=== PATIENT | male | born 1950 | race Caucasian/White ===

== ENCOUNTER 2018-07-25 08:49 | Observation (INO) ==
[2018-07-25 09:25] LABS: Hematocrit 43.6 % (42.0-52.0); Mean Cell Volume 86.3 fl (78-100); Mean Corpuscular Hemoglobin 27.7 pg (27-31); Mean Corpuscular Hgb Conc 32.1 g/dl (32-36); Mean Platelet Volume 9.9 fl (8-11.3); Platelet Count 227 K/mm3 (150-450); Red Blood Count 5.05 M/mm3 (4.7-6.0); Red Cell Distribution Width 13.9 % (11.5-14.0); White Blood Count 26.2 K/mm3 (4.0-10.5)
[2018-07-25 09:34] LABS: Total Cells Counted 100
[2018-07-25] MEDS ORDERED: DIATRIZOATE MEGLUMINE, SODIUM 30 ML BTL PO ONE (09:35)
[2018-07-25] MEDS ORDERED: MORPHINE SULFATE 4 MG/ML SYRG IV ONE (09:35)
[2018-07-25] MEDS ORDERED: NORMAL SALINE 1,000 ML IV ONE (09:35)
[2018-07-25 09:38] LABS: Albumin * 3.6 gm/dl (3.4-5.0); BUN/Creatinine Ratio 7.8 (9.0-21.6); Bilirubin, Total 1.2 mg/dL (0.0-1.1); Ca. Corrected For Albumin 8.9 mg/dL (8.4-10.2); Calcium * 8.9 mg/dL (7.9-10.9); Total Protein 7.1 gm/dL (6.2-8.2)
[2018-07-25 09:58] LABS: Lymphocyte 14 % (20-51); Monocyte 8 % (0-9); Neutrophil 78 % (42-75); Neutrophil # 20.4 K/mm3 (1.3-6.0); Platelet Estimate Normal (NORMAL); RBC Morphology Normal (NORMAL)
--- NOTE | 2018-07-25 10:03 | ERNOTE ---
Abdominal HPI - Narrative Date of Service: 07/25/18 - General Chief Complaint: Abdominal Pain Time Seen by Provider: 07/25/18 09:07 Source: patient Exam Limitations: no limitations - Immun/Allergies/Home Medications Immunizatons: IMMUNIZATION HX Immunizations Up to Date Yes Allergies/Adverse Reactions: Allergies No Known Allergies Allergy (Verified 07/25/18 08:57) Home Medications: HOME MEDICATIONS Aspirin [Aspirin EC] 81 mg PO DAILY 07/25/18 [Last Taken Unknown] Atorvastatin Calcium [Lipitor] 80 mg PO DAILY 07/25/18 [Last Taken Unknown] Calcium Polycarbophil [Fiber Laxative] 1,250 mg PO HS 07/25/18 [Last Taken Unknown] Docusate Sodium [Colace] 200 mg PO DAILY 07/25/18 [Last Taken Unknown] Tamsulosin HCl [Flomax] 0.4 mg PO DAILY 07/25/18 [Last Taken Unknown] - History of Present Illness Narrative: Patient presents to the ED for abdominal pain. This began last night and has not gone away. 10 right now. He had a bout of this 3 weeks ago that went away after a bowel movement. Pain can be severe at times. Mostly right sided but sometimes generalizes. Has felt feverish but no recorded temp. No vomiting. No CP or SOB. no trouble with urination. Has not seen anyone else for this. Constant pain since around 6pm last night. Timing: constant, other - fluctuating intensity Quality: moderate Activities at Onset: none Modifying Factors - (Improves): Present: other - nothign relieved this bout Modifying Factors - (Worsens): Present: other - nothing Associated Symptoms: Absent: headache, chest pain, diarrhea-gross blood, diarrhea-mucous, shortness of breath, swelling/mass in abdomen Prior Abdominal Problems: Present: similar symptoms Prior Treatment: Absent: recently seen, currently on antibiotics Review of Systems - Review of Systems Constitutional: Absent: fever EYE: Present: no symptoms reported ENT: Absent: sore throat Respiratory: Absent: shortness of breath Cardiology: Absent: chest pain Gastrointestinal/Abdominal: Present: See HPI Genitourinary: Absent: dysuria Neurological: Absent: weakness All Other Systems: All systems neg except as marked Medical History (Updated 07/25/18 @ 08:59 by Merced Patel RN) BPH (benign prostatic hyperplasia) Hyperlipidemia Surgical History: Surgical History (Updated 07/25/18 @ 08:58 by Merced Patel RN) History of coronary artery bypass graft x 3 Family History: Family History (Last Reviewed 07/25/18 @ 10:02 by Joby Thurman MD) Father Diabetes Dementia Mother CVA (cerebral vascular accident) Breast cancer Social History: Preferred Language Palauan Do you have any sabianist or No cultural preference? Smoking Status Never smoker Alcohol Use rarely Drug Use none No Social History Section defined Physical Exam - Physical Exam General Appearance: Present: alert, no apparent distress Head Exam: Present: normal inspection, no evidence of injury Eye Exam: Normal inspection: bilateral, PERRL: bilateral Ears, Nose, Throat: Present: normal ENT inspection Neck: Present: normal inspection Respiratory: Present: no respiratory distress, normal breath sounds, no accessory muscle use, lungs clear Cardiovascular/Chest: Present: regular rate, rhythm, normal peripheral pulses Gastrointestinal/Abdominal: Present: normal bowel sounds, soft, other - Diffuse right sided abdominal tenderness. No peritoneal signs noted. Moderate tenderness. No guarding or rebound. Back Exam: Absent: CVA tenderness (R), CVA tenderness (L) Extremity Exam: Present: normal inspection Neurological Exam: Present: alert, no motor/sensory deficits Skin Exam: Present: normal color, warm/dry Progress - Results and Orders Patient's Lab Results:: I have reviewed the patient's lab results. - Vital Signs Patient's Vital Signs:: I have reviewed the patient's vital signs. Vital Signs: Vital Signs 07/25/18 08:50 Temperature 36.7 C Pulse Rate 104 H Respiratory Rate 16 Blood Pressure 123/76 O2 Sat by Pulse Oximetry 96 - CT/Ultrasound CT/Ultrasound Narrative: I reviewed CT scan and US report per radiology - Progress/Reassessment Chief Complaint: Abdominal Pain Progress Note-Subjective: 07/25/18 15:12 I discussed the case with Dr Estevez, she will see the patient inthe ED and plan on taking the patient to the OR. I informed the patient of this and he is agreeable. Departure Clinical Impression: Abdominal pain, Cholecystitis - Departure Disposition: Still a patient Condition: Stable Referrals: Tc Quinones DO [Primary Care Provider] -
[2018-07-25] MEDS ORDERED: PIPERACILLIN SODIUM/TAZOBACTAM 3.375 GM in DEXTROSE 5 % IN WATER 100 ML IV ONE ×2 (15:03)
--- NOTE | 2018-07-25 15:41 | HP ---
Chief Complaint - Chief Complaint Date of Service: 07/25/18 Time of Service: 15:34 Chief Complaint: acute gaurav History of Present Illness: Joni is a very pleasant 68-year-old gentleman who has had 3 weeks of indigestion and abdominal pain. He feels like he has had pain off and on intermittently. He was constipated and has been taking laxatives. We'll have a bowel movement and get better, then he'll go a few days without a bowel movement and feel worse. He started to feel better again. Then last night he started to feel worse. Pain is in the right side of the abdomen. He denies any nausea or vomiting. He had an ultrasound done which shows acute cholecystitis. He does not appear to have choledocholithiasis. He has history of a CABG 2 years ago he denies any chest pain or problems since then. Medical History (Updated 07/25/18 @ 15:14 by Joby Thurman MD) BPH (benign prostatic hyperplasia) Hyperlipidemia Surgical History: Surgical History (Updated 07/25/18 @ 08:58 by Merced Patel RN) History of coronary artery bypass graft x 3 Family History: Family History (Last Reviewed 07/25/18 @ 10:02 by Joby Thurman MD) Father Diabetes Dementia Mother CVA (cerebral vascular accident) Breast cancer Social History: Preferred Language Italian Do you have any yazidism or No cultural preference? Smoking Status Never smoker Alcohol Use rarely Drug Use none No Social History Section defined Review Of Systems (GEN) - Review of Systems Generalized/Overall Review: Present: No Symptoms Reported EENTM: Present: No Symptoms Reported Respiratory: Present: No Symptoms Reported Cardiac: Present: No Symptoms Reported Abdominal: Present: Abdominal Pain Genitourinary: Present: No Symptoms Reported Musculoskeletal: Present: No Symptoms Reported Neurological: Present: No Symptoms Reported Skin: Present: No Symptoms Reported Endocrine: Present: No Symptoms Reported Immunizations: IMMUNIZATION HX Immunizations Up to Date Yes Allergies/Adverse Reactions: Allergies Allergy/AdvReac Type Severity Reaction Status Date / Time No Known Allergies Allergy Verified 07/25/18 08:57 Home Medications: HOME MEDICATIONS Aspirin [Aspirin EC] 81 mg PO DAILY 07/25/18 [Last Taken Unknown] Atorvastatin Calcium [Lipitor] 80 mg PO DAILY 07/25/18 [Last Taken Unknown] Calcium Polycarbophil [Fiber Laxative] 1,250 mg PO HS 07/25/18 [Last Taken Unknown] Docusate Sodium [Colace] 200 mg PO DAILY 07/25/18 [Last Taken Unknown] Tamsulosin HCl [Flomax] 0.4 mg PO DAILY 07/25/18 [Last Taken Unknown] Exam - Exam Vital Signs: Vital Signs - Last Taken Temp 36.8 C 07/25/18 15:19 Pulse 81 07/25/18 15:19 Resp 18 07/25/18 15:19 BP 140/65 07/25/18 15:19 Pulse Ox 96 07/25/18 15:19 Constitutional: Present: Alert, Oriented x3, Cooperative ENT Exam: Present: hearing grossly normal Eye Exam: bilateral eye: normal inspection Neck: Present: full range of motion Back Exam: Present: normal inspection Breasts: Present: Exam deferred Respiratory: Present: lungs clear, normal breath sounds Cardiovascular/Chest: Present: regular rate, rhythm Abdomen: Present: Normal bowel sounds /Rectal: Present: Exam deferred Extremity: Present: normal range of motion Skin Exam: Present: normal color Neurologic: 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 Appearance: Present: appropriate appearance Eye contact: Present: cooperative, good eye contact Thoughts: Present: normal thought pattern Diagnostic Studies: Abnormal Lab Results 07/25/18 07/25/18 Range/Units 09:17 09:17 WBC 26.2 H (4.0-10.5) K/mm3 Neutrophils % (Manual) 78 H (42-75) % Lymphocytes % (Manual) 14 L (20-51) % Neutrophils # (Manual) 20.4 H (1.3-6.0) K/mm3 Lymphocytes # (Manual) 3.7 H (1.5-3.5) k/mm3 Monocytes # (Manual) 2.1 H (0.0-1.0) k/mm3 Anion Gap 16.0 H (6.8-13.8) mmol/L BUN/Creatinine Ratio 7.8 L (9.0-21.6) Random Glucose 125 H (70-110) mg/dL Total Bilirubin 1.2 H (0.0-1.1) mg/dL Lipase 52 L (73-393) U/L Laboratory Results WBC 26.2 K/mm3 (4.0-10.5) H 07/25/18 09:17 RBC 5.05 M/mm3 (4.7-6.0) 07/25/18 09:17 Hgb 14.0 gm/dL (13.5-18.0) 07/25/18 09:17 Hct 43.6 % (42.0-52.0) 07/25/18 09:17 MCV 86.3 fl (78-100) 07/25/18 09:17 MCH 27.7 pg (27-31) 07/25/18 09:17 MCHC 32.1 g/dl (32-36) 07/25/18 09:17 RDW 13.9 % (11.5-14.0) 07/25/18 09:17 Plt Count 227 K/mm3 (150-450) 07/25/18 09:17 MPV 9.9 fl (8-11.3) 07/25/18 09:17 78 % (42-75) H 07/25/18 09:17 14 % (20-51) L 07/25/18 09:17 8 % (0-9) 07/25/18 09:17 20.4 K/mm3 (1.3-6.0) H 07/25/18 09:17 3.7 k/mm3 (1.5-3.5) H 07/25/18 09:17 2.1 k/mm3 (0.0-1.0) H 07/25/18 09:17 Normal (NORMAL) 07/25/18 09:17 RBC Morphology Normal (NORMAL) 07/25/18 09:17 Sodium 139 mmol/L (132-142) 07/25/18 09:17 139 mmol/L (130-142) 07/25/18 09:17 Potassium 4.0 mmol/L (3.4-4.6) 07/25/18 09:17 Chloride 102 mmol/L (97-106) 07/25/18 09:17 Carbon Dioxide 25.0 mmol/L (24-32.6) 07/25/18 09:17 16.0 mmol/L (6.8-13.8) H 07/25/18 09:17 BUN 9 mg/dL (6-23) 07/25/18 09:17 1.16 mg/dL (0.4-1.4) 07/25/18 09:17 Est GFR (Non-Af Amer) 67 mL/min (60-130) 07/25/18 09:17 7.8 (9.0-21.6) L 07/25/18 09:17 125 mg/dL (70-110) H 07/25/18 09:17 Calcium 8.9 mg/dL (7.9-10.9) 07/25/18 09:17 Calcium Adj for Albumin 8.9 mg/dL (8.4-10.2) 07/25/18 09:17 1.2 mg/dL (0.0-1.1) H 07/25/18 09:17 AST 18 U/L (0-48) 07/25/18 09:17 ALT 26 U/L (19-67) 07/25/18 09:17 89 U/L (50-170) 07/25/18 09:17 7.1 gm/dL (6.2-8.2) 07/25/18 09:17 3.6 gm/dl (3.4-5.0) 07/25/18 09:17 52 U/L (73-393) L 07/25/18 09:17 Assessment/Plan - Narrative Narrative: We'll take the patient to the OR for laparoscopic possible open cholecystectomy. There'll be a possible intraoperative cholangiogram. He was given antibiotics. Risks and benefits of the procedure were discussed with the patient including bleeding, infection, damage to common bile duct, and bile leak. He voices understanding. - Assessment/Plan (1) Leukocytosis Problem: Acute (2) Carotid artery disease Problem: Chronic (3) Abdominal pain Problem: Acute (4) Cholecystitis Problem: Acute
--- NOTE | 2018-07-25 16:21 | ANES ---
Anesthesia Pre Procedure Eval Vitals/Labs: Last Vital Signs Temp 36.8 C 07/25/18 15:42 Pulse 80 07/25/18 15:42 Resp 20 07/25/18 15:42 BP 127/61 07/25/18 15:42 Pulse Ox 96 07/25/18 15:42 HOME MEDICATIONS Aspirin [Aspirin EC] 81 mg PO DAILY 07/25/18 [Last Taken Unknown] Atorvastatin Calcium [Lipitor] 80 mg PO DAILY 07/25/18 [Last Taken Unknown] Calcium Polycarbophil [Fiber Laxative] 1,250 mg PO HS 07/25/18 [Last Taken Unknown] Docusate Sodium [Colace] 200 mg PO DAILY 07/25/18 [Last Taken Unknown] Tamsulosin HCl [Flomax] 0.4 mg PO DAILY 07/25/18 [Last Taken Unknown] Allergies/Adverse Reactions: Allergies Allergy/AdvReac Type Severity Reaction Status Date / Time No Known Allergies Allergy Verified 07/25/18 08:57 - Planned Procedure Planned Procedure: Lap Kat[place] Medication List Reviewed:: Yes Allergies Verified: Yes Medical History (Updated 07/25/18 @ 16:21 by Clifton Cuba CRNA) BPH (benign prostatic hyperplasia) CAD (coronary artery disease) Hyperlipidemia Surgical History (Updated 07/25/18 @ 08:58 by Merced Patel RN) History of coronary artery bypass graft x 3 Family History (Last Reviewed 07/25/18 @ 16:05 by Clifton Cuba CRNA) Father Diabetes Dementia Mother CVA (cerebral vascular accident) Breast cancer - Family Anesthesia History Family History:: no untoward family reactions to anesthesia, no familial bleeding tendencies, no family history of clotting disorders, no family history of premature - Airway/Neck/Teeth Within Normal Limits:: Yes - loose rear left molar Teeth Condition: intact Denture Type: Perm crown/bridge Mallampatti Score: 2 Thyromental (T-M) distance: < 6 cm Mandibulo Hyoid distance: < 3 cm - Respiratory Respiratory History: other - history of frequent shortness of breath Respiratory Physical: lungs clear Discussed smoking cessation including day of surgery: No Sleep Apnea currently treated: No Sleep Apnea by current assessment: No Discussed Risks/Treatment of JED: No - Cardiovascular Tolerate Activity: Poor Heart Sounds: S1 & S2, Regular - Anesthesia Assessment and Plan ASA Class: PS, III Anesthesia Type Plan: General ET Planned difficult intubation/equipment available: Yes
[2018-07-25] MEDS ORDERED: BUPIVACAINE HCL 50 ML VIAL IJ ONE (17:20)
[2018-07-25] MEDS ORDERED: RINGER'S SOLUTION,LACTATED 1,000 ML IV PRN (17:29)
[2018-07-25] MEDS ORDERED: ACETAMINOPHEN 325 MG TABLET PO PRN (18:07)
[2018-07-25] MEDS ORDERED: HYDROcodone/ACETAMINOPHEN 1 EACH TABLET PO PRN (18:07)
[2018-07-25] MEDS ORDERED: IBUPROFEN 800 MG TABLET PO PRN (18:07)
[2018-07-25] MEDS ORDERED: ONDANSETRON HCL/PF 2 MG/ML VIAL IV PRN (18:07)
--- NOTE | 2018-07-25 18:32 | OR ---
Operative Report - Dictated Report Narrative: Date of procedure: 07/25/18 Procedure: laparoscopic cholecystectomy Pre-procedure diagnosis: Acute cholecystitis Post-procedure diagnosis: Gangrenous cholecystitis Surgeon: Dr. Rylee Estevez Anesthesia: general Indication for procedure: Joni is a pleasant 68-year-old gentleman with acute cholecystitis. Description of procedure: After appropriate informed consent was obtained patient was taken to the operating room, placed in the supine position. General anesthesia was achieved. The patient was prepped and draped in the usual sterile fashion. A 5 mm periumbilical incision was made, hemostat was used to dissect down to the fascia. A Veress needle was inserted, a saline drop test was performed which was satisfactory. The abdomen was insufflated to 15 mmHg. A 5mm blunt trocar was placed at the umbilicus. The camera was inserted, there was no evidence of a trocar injury. An 11 mm trocar was placed in subxiphoid position. A 5 mm trocar was placed in the right upper quadrant. An additional 5 mm trocar was placed in the right upper lateral quadrant The patient was placed in a head up, rotated left position, to facilitate exposure. The gallbladder was identified, and was elevated over the liver. When the gallbladder was grasped and the gallbladder opened up and bile spilled. The gallbladder was re-grabbed and it again opened. Gallbladder was gangrenous. The cystic duct was identified and was dissected out, this was directly entering the gallbladder. The cystic artery was then identified, it was directly entering the gallbladder. There were 3 clips placed on the stay side of the cystic duct, 1 clip was placed on the gallbladder side, the cystic duct was then transected. The cystic artery had 2 clips placed on the stay side, 1 on the gallbladder side. The EndoShears were used to transect the cystic artery. The gallbladder was then removed from the liver bed using electrocautery. The gallbladder was placed in an Endo Catch bag, and removed through the subxiphoid port. The liver was inspected and hemostasis was achieved. The area over the liver was irrigated until clear. Surgicel hemostatic powder agent was applied to the liver bed. There was a small amount of oozing from the liver bed. This resolved. The remainder of the abdomen was inspected and was satisfactory. The xiphoid trocar site was closed with an 0 Vicryl suture using a Jorge A-Odilia device. The abdomen was desufflated. Local anesthetic was injected. The incisions were closed with inverted interrupted 4-0 Monocryl sutures. Mastisol and Steri-Strips were applied. The patient tolerated the procedure well and was transported to the PACU in satisfactory condition. Estimated blood loss: minimal Complications: none Specimens to pathology: Gallbladder Disposition: She will be admitted to the hospital for observation.
--- NOTE | 2018-07-25 19:26 | ANES ---
Post Anesthesia Assessment - Vital Signs Vitals: Last Vital Signs Temp 36.6 C 07/25/18 18:48 Pulse 76 07/25/18 19:03 Resp 14 07/25/18 19:03 BP 158/74 H 07/25/18 19:03 Pulse Ox 93 07/25/18 19:19 Airway Patency: Normal - Mental Status Level Of Consciousness: Awake - Pain Level Pain Score: 0 - N/V Assessment Nausea/Vomiting Presence: None Dehydration:: No
--- NOTE | 2018-07-25 19:26 | ANES ---
Post Anesthesia Discharge - Transfer of Care Transfer of Care handoff given to nurse: Yes - Discharge from PACU Discharge from PACU when meets criteria: Yes - Discharge to ASU Discharge to ASU-no complications/pt stable: Yes
[2018-07-25] MEDS ORDERED: POTASSIUM CHLORIDE/D5-0.5NS 1,000 ML IV SCH (19:30)
--- NOTE | 2018-07-25 20:44 | ANES ---
Post Anesthesia Assessment - Vital Signs Vitals: Last Vital Signs Temp 36.6 C 07/25/18 18:48 Pulse 85 07/25/18 20:03 Resp 14 07/25/18 19:03 BP 139/65 07/25/18 20:03 Pulse Ox 96 07/25/18 20:03 Airway Patency: Normal - Mental Status Level Of Consciousness: Awake - Pain Level Pain Score: 0 - N/V Assessment Nausea/Vomiting Presence: None Dehydration:: No
[2018-07-25 22:08] LABS: Urine Bilirubin Negative (NEGATIVE); Urine Blood Negative /ul (NEGATIVE); Urine Ketone Negative (NEGATIVE); Urine Nitrite Negative (NEGATIVE); Urine Protein Negative (NEGATIVE); Urine Specific Gravity <=1.005 SP.GR. (1.005-1.030); Urine Urobilinogen Normal (NORMAL)
[2018-07-25 22:09] LABS: Urine Appearance Clear (CLEAR); Urine Bacteria None Seen; Urine Color Yellow; Urine RBC None Seen /hpf (0-5); Urine WBC None Seen /hpf (0-5)
--- NOTE | 2018-07-26 09:40 | DS ---
(1) Leukocytosis Problem: Acute (2) Carotid artery disease Problem: Chronic (3) Abdominal pain Problem: Resolved (4) Cholecystitis Problem: Resolved Description of Stay: Joni is a pleasant 68-year-old gentleman who was admitted through the emergency room for acute cholecystitis. He was taken to the operating room for a laparoscopic cholecystectomy. He is now doing well and feels ready for discharge. Procedures Performed: see notes below List Procedures: Laparoscopic cholecystectomy Results and Findings: Lab Pending Results 07/25/18 09:17: WBC 26.2 H, RBC 5.05, Hgb 14.0, Hct 43.6, MCV 86.3, MCH 27.7, MCHC 32.1, RDW 13.9, Plt Count 227, MPV 9.9, Neutrophils % (Manual) 78 H, Lym phocytes % (Manual) 14 L, Monocytes % (Manual) 8, Neutrophils # (Manual) 20.4 H, Lymphocytes # (Manual) 3.7 H, Monocytes # (Manual) 2.1 H, Platelet Estimate Normal, RBC Morphology Normal 07/25/18 09:17: Sodium 139, Plasma Sodium 139, Potassium 4.0, Chloride 102, Carbon Dioxide 25.0, Anion Gap 16.0 H, BUN 9, Creatinine 1.16, Est GFR (Non-Af Amer) 67, BUN/Creatinine Ratio 7.8 L, Random Glucose 125 H, Calcium 8.9, Calcium Adj for Albumin 8.9, Total Bilirubin 1.2 H, AST 18, ALT 26, Alkaline Phosphatase 89, Total Protein 7.1, Albumin 3.6, Lipase 52 L 07/25/18 22:00: Urine Color Yellow, Urine Appearance Clear, Urine pH 6.0, Ur Specific [place] <=1.005, Urine Protein Negative, Urine Glucose (UA) Negative, Urine Ketones Negative, Urine Blood Negative, Urine Nitrate Negative, Urine Bilirubin Negative, Urine Urobilinogen Normal, Ur Leukocyte Esterase Negative, Urine RBC None seen, Urine WBC None seen, Ur Epithelial Cells Trace, Urine Bacteria None seen, Urine Culture Comments No culture indicated Discharge Location: Home Disposition: Home self-care Condition: Stable Discharge Activity: Activity as tolerated Discharge Diet: General/regular food Referrals: Tc Quinones DO [Primary Care Provider] - Complete Home Medications List: Complete Home Medication List: Aspirin [Aspirin EC] 81 mg PO DAILY 07/25/18 Atorvastatin Calcium [Lipitor] 80 mg PO DAILY 07/25/18 Calcium Polycarbophil [Fiber Laxative] 1,250 mg PO HS 07/25/18 Docusate Sodium [Colace] 200 mg PO DAILY 07/25/18 Tamsulosin HCl [Flomax] 0.4 mg PO DAILY 07/25/18 Acetaminophen [Tylenol] 650 mg PO Q6H PRN tablet 07/26/18 HYDROcodone/ACETAMINOPHEN [[place] 5-325] 2 each PO Q6H PRN tablet 07/26/18
[2018-07-26 10:37] VITALS: BP 118/64
== END 2018-07-26 11:15 | disposition home or self-care (01) ==
LOC: ER 08:49 → AMB 16:39 → MS 16:39 → AMB 16:53
PROVIDERS: ADMIT Surgery; ATTEND Surgery
CPT/HCPCS: 36415; 74177; 76705; 80053; 81001; 83690; 85025; 88304; 93005; 96360; 96361; 99285; G0378